=== PATIENT | female | born 1995 ===

== ENCOUNTER 2016-12-05 17:23 | Inpatient (IN) ==
[~2016-12-05 17:23] MED LIST: CeFAZolin Pre 2,000 MG/100 ML 2,000 MG/100 ML BAG IVPB ONE; Famotidine 20 MG/2 ML VIAL IVP ONE; Metoclopramide 10 MG/2 ML VIAL IVP ONE; Oxytocin 20 units/ LR 1000 mL 20 UNIT/1,000 ML BAG IVC ONE; Penicillin G Potassium 5,000,000 UNIT in D5% in Water (Mini-Bag+) 100 ML IVPB ONE
--- NOTE | 2016-12-05 17:27 | OB/GYN History & Physical ---
Date of Encounter: 12/05/16 Time of Encounter: 16:25 Assessment and Plan (1) and not yet delivered in third trimester Current visit: Yes Status: Acute (2) 39 weeks gestation of Current visit: Yes Status: Acute (3) Previous section complicating Current visit: Yes Status: Acute Will keep patient nothing by mouth and prepare her for a repeat low transverse section (4) Prolonged rupture of membranes Current visit: Yes Status: Acute History of Present Illness HPI: Ms. Martínez is a 21 year old female 2 para 1 at 39 and one sevenths weeks who presented to labor and delivery complaining of leaking of fluid for greater than 24 hours. Patient states she started leaking yesterday no large gush but states it was wearing a pad underwear and even her clothing. She did not bother calling anyone until this afternoon. She is a scheduled in 2 days due to a section 1. She is not complaining of any contractions and is feeling the baby move. Nitrazine was negative on the perineum however on sterile speculum exam pooling nitrazine and ferning were all positive. Patient will be scheduled for a repeat low transverse section. Patient is O+ rubella positive GBS negative area because of prolonged rupture membranes. Patient on penicillin 5 million units and so we can do the surgery and then switch her over to Ancef for the surgery. Past Med Surg Social Fam HX - Past Medical History Source: patient, old records reviewed Medical history: no medical history Psychiatric history: no psych history - Past Surgical History Surgical History: (x 1) - Social History Smoking Status: Never smoker Smokeless Tobacco Status: No Alcohol use: none Occupational status: employed Current living situation: Home - Independent Activity Level: Independent ambulation Recent Out of Country Travel Within the Last 8 Weeks: No Exposure or Possible Exposure to Illness During Travel: No Obstetrical History - Pregnancies : 2 Para: 1 Term: 1 : 0 Ab's: 0 Livin Review of System OB All systems PM: reviewed and no additional remarkable complaints except as stated - Genitourinary Genitourinary: other (Leaking of fluid) Exam - Constitutional Constitutional: well developed, well nourished, no acute distress, average body habitus - HEENT HEENT: PERRL - Neck Neck exam: full ROM - Lungs Respiratory exam: CTAB - Cardiovascular Cardiovascular exam: RRR - Abdomen Abdomen: Present: gravid - Cervix Dilation: 2 Effacement: 50 Station: -3 (ballotable) - Comments Comments: Sterile speculum exam revealed positive pooling, positive nitrazine, positive ferning, heart tones 140s reactive no contraction seen. Results All other labs normal.
[2016-12-05] MEDS ORDERED: Ringers Solution, Lactated 1,000 ML IVC SCH (17:30)
[2016-12-05 18:07] LABS: Basophils # 0.1 K/mcL (0.0-0.2); Basophils % 0.4 %; Eosinophils # 0.4 K/mcL (0.0-0.6); Eosinophils % 3.7 %; Hemoglobin 12.7 g/dL (11.5-15.4); Immature Granulocytes % 2.9 % (0-4); Lymphocytes % 17.6 %; Mean Corpuscular HGB Conc 35.3 g/dL (31.6-35.5); Mean Corpuscular Hemoglobin 33.5 pg (28.0-33.3); Mean Platelet Volume 10.7 fL (9.4-12.4); Monocytes # 0.8 K/mcL (0.0-1.3); Monocytes % 7.5 %; Neutrophils # 7.6 K/mcL (1.6-8.9); Platelet Count 113 K/mcL (140-400); Red Blood Count 3.79 M/mcL (3.82-4.97); Red Cell Distribution Width 13.2 % (11.5-14.5); Segmented Neutrophils % 67.9 %
--- NOTE | 2016-12-05 20:00 | Anesthesia Evaluation PreOp ---
Date of Encounter: 12/05/16 Time of Encounter: 19:40 - Past History Planned Operation: Repeat CSection Cardiac History: Denies any Significant Hx Pulmonary History: Denies Any Significant HX SHIP UNLOADER History: Denies Any Significant HX Other Medical History: Denies Any Significant HX Anesthesia History: No Prior Anesthetic Complications, Past Anesthesia ( CSection (Spinal)) : Yes Alcohol Use: none Drug use: none Medications and Allergies Amoxicillin 500 mg PO BID 12/05/16 [History] Pnv with Ca,No.72/Iron/FA [Pnv Plus Multivit Tab] 1 / PO DAILY [History] Allergies No Known Allergies Allergy (Verified 12/05/16 17:53) - Meds/Allergy Pre-op Review Medications Reviewed: Yes Allergies Reviewed: Yes Beta Blockers on Current Med List: No Anesthesia Results - Labs 12/05/16 17:50 Anesthesia Exam Height: 1.57m Weight: 77.8kg NPO (# of Hours): Ate meal at 1530 Pain Scale: 0 Pain Scale Used: Numeric (1 - 10) - HEENT Pupil (Motor): Pupils equal Mallampati: II Teeth: Normal Oral Opening: Greater than 3 - SHIP UNLOADER LOC: Oriented SHIP UNLOADER Motor: Normal RUE, Normal LUE, Normal RLE, Normal LLE, Normal Face SHIP UNLOADER Sensory: Normal: RUE, LUE, RLE, LLE, Face - Cardiac Rhythm: Regular Murmur: None JVD: No Carotid Bruit: No - Pulmonary Breath Sounds: bilateral Clear Respiratory Effort: Symmetrical Anesthesia Assess/Plan ASA Score: 2 Modified [place] Scale for Level of Consciousness: Cooperative, oriented, and tranquil Anesthetic Plan: Regional Monitoring Plan: Standard Monitors Recovery Plan: PACU
[2016-12-05] MEDS ORDERED: Penicillin G Potassium 2,500,000 UNIT in D5% in Water 100 ML IVPB SCH (22:00)
[2016-12-05] MEDS ORDERED: *HR* FentaNYL (PF) 100 MCG/2 ML VIAL ONE (23:01)
[2016-12-05] MEDS ORDERED: *HR* Morphine Sulfate/PF 5 MG/10 ML AMPUL ONE (23:01)
[2016-12-05] MEDS ORDERED: *HR* Phenylephrine 10 MG/ML VIAL ONE (23:03)
[2016-12-05] MEDS ORDERED: *HR* Oxytocin 10 UNIT/ML VIAL IM ONE (23:03)
[2016-12-05] MEDS ORDERED: Ringers Solution, Lactated 1,000 ML ONE (23:31)
[2016-12-05] MEDS ORDERED: *HR* Promethazine 25 MG/ML VIAL IVP PRN (23:34)
[2016-12-05] MEDS ORDERED: Naloxone 0.4 MG/ML INJ IVP PRN (23:34)
[2016-12-05] MEDS ORDERED: *HR* HYDROmorphone (PF) 1 MG/ML SYRINGE IVP PRN (23:34)
[2016-12-05] MEDS ORDERED: Ondansetron 4 MG/2 ML VIAL IVP PRN (23:34)
[2016-12-05] MEDS ORDERED: Ondansetron 4 MG/2 ML VIAL ONE (23:43)
[2016-12-06] MEDS ORDERED: Ringers Solution, Lactated 1,000 ML ONE (00:17)
--- NOTE | 2016-12-06 00:29 | OB/GYN Procedure Note ---
Section - Date of procedure: 12/06/16 Preop diagnosis: other (Intrauterine at 39 and 1/7 weeks, prolonged rupture membranes greater than 24 hours, previous section 1) Post-op diagnosis: same Procedure: repeat low transverse Surgeon: Jairo Horvath Estimated blood loss (cc): 100 Anesthesiologist: Lea Huber Supervisor/Port Director: Jayson Thorpe Anesthesia Type: Spinal section complications: none Disposition: L&D Recovery Room Specimens: Placenta - (s) A Infant Delivery Date: 12/06/16 Delivery Time: 23:46 Presentation: vertex Position: JANICE Route of delivery: other ( section) Gender: Female Viability: Viable Pounds: 9 Ounces: 2 Gram Weight: 4.125 kg at 1 minute: 9 at 5 minutes: 9 Shoulder Dystocia: not encountered Specimens collected: cord blood Placenta: spontaneous Cord: nuchal cord, 3 umbilical vessels - Narrative Narrative: Patient is a 21-year-old 2 para 1 at 39 and one sevenths weeks who presented to labor and delivery with complaint of leaking of fluid for 24 hours. Patient was noted to be grossly ruptured with positive nitrazine ferning and pooling. Patient is a previous section. Patient had eaten right before she had called and since she was not in active labor we had to wait the full 8 hours before he could do the surgery. Patient was started on penicillin 5 million units loading dose than 2.5 mg until the surgery. Procedure: Patient was taken the operating room where spinal anesthesia was found be adequate. She was placed in the dorsal supine position with a leftward tilt prepped and draped in usual fashion. Timeout was obtained. A Pfannenstiel incision was made with a scalpel removing the old scar and carried down to the underlying tissue to the fascia was then applied. Fascia was nicked in midline extended laterally with the Avelar scissors. The superior and inferior edges of the fascia were grasped tented up dissected off the rectus muscles. Rectus muscles were in midline parietal peritoneum was identified tented up and entered sharply. This was extended superiorly and inferiorly with Metzenbaum scissors. Bladder blade was inserted the vesicouterine peritoneum was identified tented up and entered sharply. This was extended laterally the bladder flap created digitally. The lower uterine segment was incised with a scalpel and extended laterally with digital manipulation. Membranes were ruptured large amounts of clear fluid noted. Infant's head was delivered there was a nuchal 1 loose and reduced the was then fully delivered. The cord was clamped and cut and was handed off to waiting pediatric team. Infant weight was 9 lbs. 2 oz. Apgars were 9 at 1 minute and 9 at 5 minute. Cord blood was then collected and placenta was then spontaneously delivered and the uterus was exteriorized and cleaned of all clots and debris. The lower uterine segment was then closed using an 0 Vicryl in a running locking stitch by a 2 layer closure. Good hemostasis was noted. Uterus was returned to the abdomen, the gutters were cleaned of all clots and debris, and then was copiously irrigated with water with no active bleeding. The parietal peritoneum was then brought together by [id number] 0 Vicryl's then the fascia was closed using a #1 stratafix then the skin was closed using a 4-0 Vicryl in subcuticular manner. a Primeo dermabond dressing was applied and patient was taken to recovery room in stable condition. All needles lap and sponge counts were correct 3 she did receive preoperative antibiotics. She will be observed 2 hours before being taken the floor.
[2016-12-06] MEDS ORDERED: Oxytocin 20 units/ LR 1000 mL 20 UNIT/1,000 ML BAG IVC ONE (01:49)
[2016-12-06] MEDS ORDERED: Sennosides 8.6 MG TABLET PO PRN (03:08)
[2016-12-06] MEDS ORDERED: Ondansetron 4 MG/2 ML VIAL IVP PRN (03:08)
[2016-12-06] MEDS ORDERED: Metoclopramide 10 MG/2 ML VIAL IVP PRN (03:08)
[2016-12-06] MEDS ORDERED: *HR* OxyCODONE/APAP 10/325 TABLET PO PRN (03:08)
[2016-12-06] MEDS ORDERED: Oxytocin 20 units/ LR 1000 mL 20 UNIT/1,000 ML BAG IVC SCH (03:08)
[2016-12-06] MEDS ORDERED: Simethicone 80 MG TAB.CHEW PO PRN (03:08)
[2016-12-06] MEDS ORDERED: Naloxone 0.4 MG/ML INJ IVP PRN (03:08)
[2016-12-06] MEDS ORDERED: *HR* Morphine 2 MG/ML SYRINGE IVP PRN (03:08)
[2016-12-06] MEDS ORDERED: Measles/Mumps/Rubella Vacc 0.5 ML VIAL SQ ONE (03:08)
[2016-12-06] MEDS ORDERED: *HR* HYDROmorphone (PF) 1 MG/ML SYRINGE IVP PRN (03:08)
[2016-12-06] MEDS: *HR* OxyCODONE/APAP 5/325 TABLET PO PRN ×2 (03:26→14:54)
[2016-12-06 04:34] LABS: Basophils # 0.1 K/mcL (0.0-0.2); Basophils % 0.5 %; Eosinophils # 0.5 K/mcL (0.0-0.6); Eosinophils % 3.2 %; Hematocrit 34.7 % (35.3-44.9); Hemoglobin 12.1 g/dL (11.5-15.4); Immature Granulocytes % 1.3 % (0-4); Lymphocytes # 2.4 K/mcL (0.6-4.6); Lymphocytes % 17.2 %; Mean Corpuscular HGB Conc 34.9 g/dL (31.6-35.5); Mean Corpuscular Hemoglobin 33.7 pg (28.0-33.3); Mean Corpuscular Volume 96.7 fL (83.0-100.0); Mean Platelet Volume 11.1 fL (9.4-12.4); Monocytes # 0.8 K/mcL (0.0-1.3); Monocytes % 5.6 %; Neutrophils # 10.2 K/mcL (1.6-8.9); Platelet Count 102 K/mcL (140-400); Red Blood Count 3.59 M/mcL (3.82-4.97); Red Cell Distribution Width 13.2 % (11.5-14.5); Segmented Neutrophils % 72.2 %
[2016-12-06] MEDS: Ibuprofen 600 MG TABLET PO PRN ×2 (08:50→20:12)
[2016-12-06] MEDS: Prenatal Vit/FA 1 EACH TABLET PO SCH (08:50)
--- NOTE | 2016-12-06 09:05 | OB/GYN Progress Note ---
Date of Encounter: 12/06/16 Time of Encounter: 09:03 - Assessment and Plan (1) delivery delivered Current Visit: Yes Status: Acute Pt meeting POD#1 milestones. Await ambulation and spontaneous void once meza is removed this am. Anticipate discharge home POD#2. Subjective - Subjective Interval history: Meza catheter in place draining light yellow urine. She has not yet ambulated. She does report passing flatus and is tolerating a regular diet. Patient reports: appetite normal, pain well controlled [place]: doing well Objective - Vital Signs Latest vital signs: Vital Signs Temp Pulse Resp BP Pulse Ox 12/06/16 08:41 14 12/06/16 08:05 98.6 F 109 16 105/59 97 12/06/16 05:45 98.5 F 95 14 100/56 98 12/06/16 04:55 98.5 F 91 14 106/60 97 12/06/16 03:45 97.9 F 97 16 113/72 97 12/06/16 03:15 98.4 F 90 16 117/72 97 12/06/16 02:45 98.0 F 90 16 107/68 99 Intake and Output 12/05/16 12/06/16 12/06/16 23:59 07:59 15:59 Intake Total 120 / 120 200 / 200 Output Total 950 / 950 450 / 450 Balance -830 / -830 -250 / -250 Intake: Oral 120 / 120 200 / 200 Output: Catheter 950 / 950 450 / 450 Other: Weight 77.8 kg 75.659 kg Patient Weight 12/06/16 23:59 Weight 75.659 kg - Exam Lungs: bilateral: normal Chest: Normal S1, Normal S2 Extremities: Present: normal, edema (mild bilaterally) Abdomen: Present: soft Incision: Present: dry, intact Uterus: Present: firm - Labs Labs: Laboratory Results - last 24 hr 12/05/16 12/06/16 17:50 04:02 WBC 11.2 H 14.2 H RBC 3.79 L 3.59 L Hgb 12.7 12.1 Hct 36.0 34.7 L MCV 95.0 96.7 MCH 33.5 H 33.7 H MCHC 35.3 34.9 RDW 13.2 13.2 Plt Count 113 L 102 L MPV 10.7 11.1 Immature Gran % 2.9 1.3 Seg Neutrophils % 67.9 72.2 Lymphocytes % 17.6 17.2 Monocytes % 7.5 5.6 Eosinophils % 3.7 3.2 Basophils % 0.4 0.5 Neutrophils # 7.6 10.2 H Lymphocytes # 2.0 2.4 Monocytes # 0.8 0.8 Eosinophils # 0.4 0.5 Basophils # 0.1 0.1
[2016-12-07] MEDS: *HR* OxyCODONE/APAP 5/325 TABLET PO PRN ×2 (07:12→13:35)
[2016-12-07] MEDS: Prenatal Vit/FA 1 EACH TABLET PO SCH (08:22)
--- NOTE | 2016-12-07 08:29 | Discharge Summary ---
Date of Encounter: 12/07/16 Time of Encounter: 08:25 - Discharge Diagnosis (1) delivery delivered Priority: Primary Status: Acute Comments: Pt states feels well, voiding, ambulating, and tolerating regular diet without difficulty. Desires discharge. - Discharge Medications Prescriptions: OxyCODONE/APAP 5/325 [Percocet 5/325 MG] 1 each PO Q4HR PRN #20 tablet PRN Reason: Moderate pain 4-6 Ibuprofen [Motrin] 600 mg PO Q6HR PRN #60 tablet PRN Reason: Cramping Docusate [Colace] 100 mg PO BID #60 capsule Home Medications: Pnv with Ca,No.72/Iron/FA [Pnv Plus Multivit Tab] 1 / PO DAILY [History] Docusate [Colace] 100 mg PO BID #60 capsule 12/07/16 [Rx] Ibuprofen [Motrin] 600 mg PO Q6HR PRN #60 tablet 12/07/16 [Rx] OxyCODONE/APAP 5/325 [Percocet 5/325 MG] 1 each PO Q4HR PRN #20 tablet 12/07/16 [Rx] Simethicone [Gas-X] 80 mg PO TID PRN #0 tab.chew 12/07/16 [Rx] Allergies/Adverse Reactions: Allergies No Known Allergies Allergy (Verified 12/05/16 17:53) Data Procedures and tests throughout hospitalization: Laboratory Tests 12/05/16 12/06/16 17:50 04:02 WBC 11.2 H 14.2 H RBC 3.79 L 3.59 L Hgb 12.7 12.1 Hct 36.0 34.7 L MCV 95.0 96.7 MCH 33.5 H 33.7 H MCHC 35.3 34.9 RDW 13.2 13.2 Plt Count 113 L 102 L MPV 10.7 11.1 Immature Gran % 2.9 1.3 Seg Neutrophils % 67.9 72.2 Lymphocytes % 17.6 17.2 Monocytes % 7.5 5.6 Eosinophils % 3.7 3.2 Basophils % 0.4 0.5 Neutrophils # 7.6 10.2 H Lymphocytes # 2.0 2.4 Monocytes # 0.8 0.8 Eosinophils # 0.4 0.5 Basophils # 0.1 0.1 Date of admission: 12/05/16 17:23 Primary care physician: PCP NO Discharging clinician: Lynn Maharaj Anticipated date of discharge: 12/07/16 - Patient Status Disposition: Home, Self-Care Condition: Good Functional capacity at discharge: independent ambulation Overall status at discharge: patient is back to baseline - Discharge Instructions Follow Up With: Jairo Horvath DO [Partnered Physician] - (December 20, 2016 @ 10:45 am) - Diet and Activity Activity: resume usual activities as tolerated Diet: regular diet Hospital Course Reason for admission: rupture of membranes Delivery: section Other procedures: none complications: none Discharge diagnosis: IUP at term delivered Hospital course: Section - Date of procedure: 12/06/16 Preop diagnosis: other (Intrauterine at 39 and 1/7 weeks, prolonged rupture membranes greater than 24 hours, previous section 1) Post-op diagnosis: same Procedure: repeat low transverse Surgeon: Jairo Horvath Estimated blood loss (cc): 100 Anesthesiologist: Lea Huber Vp Construction: Jayson Thorpe Anesthesia Type: Spinal section complications: none Disposition: L&D Recovery Room Specimens: Placenta - Infant (s) Infant A Delivery Date: 12/06/16 Infant Delivery Time: 23:46 Presentation: vertex Position: JANICE Route of delivery: other ( section) Gender: Female Viability: Viable Pounds: 9 Ounces: 2 Gram Weight: 4.125 kg at 1 minute: 9 at 5 minutes: 9 Shoulder Dystocia: not encountered Specimens collected: cord blood Placenta: spontaneous Cord: nuchal cord, 3 umbilical vessels Stable in and appropriate for discharge Time Attestation: Total time spent providing and/or coordinating discharge services: - VTE Documentation of Mechanical Device: Intermittent pneumatic compression device Exam - Constitutional Vitals: Temp Pulse Resp BP Pulse Ox 98.2 F 109 16 106/70 97 12/06/16 19:45 12/06/16 19:45 12/06/16 19:45 12/06/16 19:45 12/06/16 19:45 General appearance IM: A&O X 3 - Respiratory Respiratory exam: Present: CTAB - Cardiovascular Cardiovascular exam IM: Present: distant heart sounds, RRR, +S1 - GI/Abdominal GI/Abdominal exam IM: normal bowel sounds, soft Incision: normal, intact - Uterine Tone: Firm - Extremities Exam Extremities exam IM: Present: normal capillary refill, normal inspection - Neurological Exam Neurological exam: normal gait, oriented X3 - Psychiatric Additional comments: reports good mood
[2016-12-07 08:42] VITALS: BP 101/71
[2016-12-07] MEDS: Ibuprofen 600 MG TABLET PO PRN (11:07)
== END 2016-12-07 19:05 | disposition home or self-care (01) | DRG 540 ==
LOC: 1NENULAB → 1NENUOBS 12-06 02:33
PROVIDERS: ADMIT Obstetrics & Gynecology; ATTEND Obstetrics & Gynecology